=== PATIENT | male | born 1970 | race Caucasian/White ===

== ENCOUNTER 2020-01-20 17:04 | Emergency (ER) | payer OTHER ==
[~2020-01-20] VITALS: Ht 188 cm; Wt 61.2 kg
[2020-01-20 17:15] VITALS: BP 111/71
--- NOTE | 2020-01-20 17:20 | NUR ---
ROBERTO FROM [facility] C/O FEVER, COUGH,NO URIATION X YESTERDAY. NEUROLOGICALLY AT BASELINE. NON VERBAL. MED HX: STROKE, HEART ATTACK, 2 STENTS, G TUBE. PATIENT POSITIONED FOR COMFORT; HOB ELEVATED; BEDRAILS UP X2; BED DOWN. ER MD MADE AWARE OF PT STATUS.
--- NOTE | 2020-01-20 17:21 | NUR ---
Note undone in [facility] - 01/20/20 at 1745 by [email or web address] BIBA FROM [facility] C/O FEVER, COUGH,FEVER, COUGH X YESTERDAY X YESTERDAY. NEUROLOGICALLY AT BASELINE. NON VERBAL. MED HX: STROKE, HEART ATTACK, 2 STENTS, G TUBE. PATIENT POSITIONED FOR COMFORT; HOB ELEVATED; BEDRAILS UP X2; BED DOWN. ER MADE AWARE OF PT STATUS. Addendum: 01/20/20 at 1744 by [email or web address] Amendment undone in [facility] - 01/20/20 at 1745 by [email or web address] ROBERTO FROM [facility].
--- NOTE | 2020-01-20 17:50 | NUR ---
Patient being evaluated by DR ROBERTSON at bedside.
[2020-01-20] MEDS ORDERED: KEP500 PO (17:51)
[2020-01-20] MEDS ORDERED: DIPH25SG5 PO (17:51)
[2020-01-20] MEDS ORDERED: METO25TE2 PO (17:51)
[2020-01-20] MEDS ORDERED: NACL 0.9% 1,000 ML IV SCH (17:51)
[2020-01-20] MEDS ORDERED: GABA100C PO (17:51)
[2020-01-20] MEDS ORDERED: ATOR20TA PO (17:51)
[2020-01-20] MEDS ORDERED: PRO5 PO (17:51)
[2020-01-20] MEDS ORDERED: ACET-2619 PO (17:51)
[2020-01-20] MEDS ORDERED: LEVO0.083 PO (17:51)
[2020-01-20] MEDS ORDERED: QUET50TA PO (17:51)
[2020-01-20] MEDS ORDERED: ONDA4TAB PO (17:51)
[2020-01-20] MEDS ORDERED: RANI-745 PO (17:51)
[2020-01-20] MEDS ORDERED: cefTRIAXone 1,000 MG in DEXT 5% MINI-BAG PLUS 50 ML IV ONE (17:55)
[2020-01-20] MEDS ORDERED: cefTRIAXone 1,000 MG VIAL ONE (18:04)
[2020-01-20 18:23] LABS: BASOPHILS % (AUTO) 0.2 % (0.0-2.0); EOSINOPHILS # (AUTO) 0.6 K/uL (0-0.4); EOSINOPHILS % (AUTO) 5.7 % (0.0-4.0); HEMATOCRIT 41.5 % (36-52); HEMOGLOBIN 13.9 g/dL (12.0-18.0); LYMPHOCYTES # (AUTO) 1.2 K/uL (2.0-11.5); LYMPHOCYTES % (AUTO) 11.7 % (20.5-51.1); MEAN CORPUSCULAR HEMOGLOBIN 31 pg (27-31); MEAN CORPUSCULAR HGB CONC 34 g/dL (33-37); MEAN CORPUSCULAR VOLUME 92.3 fL (80-94); MONOCYTES # (AUTO) 1.1 K/uL (0.8-1.0); MONOCYTES % (AUTO) 11.1 % (1.7-9.3); NEUTROPHILS % (AUTO) 71.3 % (42.2-75.2); PLATELET COUNT (AUTO) 198 K/uL (140-450); RED BLOOD CELL COUNT(AUTO) 4.49 MIL/uL (4.20-6.10); RED CELL DISTRIBUTION WIDTH 13.6 % (11.6-13.7); WHITE BLOOD COUNT (AUTO) 9.9 K/uL (4.8-10.8)
--- NOTE | 2020-01-20 18:37 | NUR ---
X RAY AT BEDSIDE.
[2020-01-20 18:38] LABS: ALBUMIN 3.4 g/dL (3.4-5.0); ANION GAP 9.8 (8-16); CARBON DIOXIDE 32.1 mmol/L (21-32); CREATININE 0.9 mg/dL (0.6-1.3); POTASSIUM 3.9 mmol/L (3.5-5.1); TOTAL BILIRUBIN 0.8 mg/dL (0.0-1.0)
[2020-01-20 18:39] LABS: APPEARANCE,URINE CLEAR (CLEAR); BILIRUBIN,URINE 1+ (NEGATIVE); BLOOD, URINE NEGATIVE (NEGATIVE); LEUKOCYTE ESTERASE ,URINE TRACE (NEGATIVE); NITRITE, URINE NEGATIVE (NEGATIVE); PH,URINE 7.5 (5.0-9.0); UGLUCOSE NEGATIVE (NEGATIVE)
[2020-01-20 18:42] LABS: COLOR,URINE AMBER (YELLOW)
[2020-01-20 18:50] VITALS: BP 100/67
[2020-01-20 18:52] LABS: RBC,URINE NONE SEEN /HPF (0-5); WBC,URINE 0-5 /HPF (0-5)
--- NOTE | 2020-01-20 19:05 | NUR ---
Pt report given to ARLEN CHAVEZ. Transfer of care at this time.
--- NOTE | 2020-01-20 19:07 | NUR ---
RECEIVED REPORT FROM [facility] RENAE AND [facility].
--- NOTE | 2020-01-20 19:57 | NUR ---
250ML URINE IN VERAS COLLECTION BAG.
--- NOTE | 2020-01-20 20:11 | NUR ---
Sara bearden in ED - 01/20/20 at 2010 by VAHID EMT AT [facility] GIVING PT TEACHING ON CRUTCH USE.
--- NOTE | 2020-01-21 00:25 | NUR ---
Patient discharged with v/s stable. Written and verbal after care instructions given and explained. Patient verbalized understanding. Ambulatory with steady gait. All questions addressed prior to discharge. Advised to follow up with PMD.
== END 2020-01-21 00:25 | disposition home or self-care (01) ==
LOC: MED 17:04
DX: R33.9 Retention of urine, unspecified (principal); R50.9 Fever, unspecified; R05 Cough; K74.60 Unspecified cirrhosis of liver; Z79.899 Other long term (current) drug therapy; Z86.79 Personal history of other diseases of the circulatory system; Z98.890 Other specified postprocedural states
CPT/HCPCS: 36415; 71045; 80053; 81001; 82948; 83605; 83880; 84484; 85025; 87040; 87086; 93005; 96365; 99285; J0696; J7030; J7060; Q0092